=== PATIENT | male | born 1985 | race African-American/Black ===

== ENCOUNTER 2020-04-19 12:14 | Emergency (ER) | payer OTHER ==
[~2020-04-19] VITALS: Ht 182.9 cm; Wt 97.4 kg
[2020-04-19 12:15] VITALS: BP 155/96
[2020-04-19] MEDS ORDERED: NS 1,000 ML IV ONE ×2 (13:05→14:55)
[2020-04-19 13:30] LABS: BASO % 0.2 % (0.0-1.0); EOS % 0.3 % (0.0-3.0); HEMATOCRIT 51.7 % (42.0-52.0); HEMOGLOBIN 16.9 g/dl (13.5-17.5); LYMPH # 2.3 10^3/uL (1.5-5.0); LYMPH % 37.6 % (24.0-44.0); MEAN CORPUSCULAR HEMOGLOBIN 27.9 pg (27.0-33.0); MEAN CORPUSCULAR HGB CONC 32.7 g/dl (32.0-36.5); MEAN CORPUSCULAR VOLUME 85.5 fl (80.0-96.0); MONO # 0.5 10^3/uL (0.0-0.8); MONO % 7.6 % (2.0-8.0); NEUTROPHILS # 3.3 10^3/uL (1.5-8.5); NEUTROPHILS % 54.1 % (36.0-66.0); PLATELET COUNT, AUTOMATED 283 10^3/uL (150-450); RED BLOOD COUNT 6.05 10^6/uL (4.30-6.10); WHITE BLOOD COUNT 6.2 10^3/uL (4.0-10.0)
[2020-04-19 13:33] LABS: APPEARANCE, URINE CLEAR (CLEAR); BACTERIA, URINE AUTO NEGATIVE (NEGATIVE); BILIRUBIN, URINE AUTO NEGATIVE (NEGATIVE); BLOOD, URINE BLOOD NEGATIVE (NEGATIVE); COLOR, URINE STRAW (YELLOW); GLUCOSE, URINE (UA) AUTO NEGATIVE (NEGATIVE); KETONE, URINE AUTO 1+ mg/dL (NEGATIVE); LEUKOCYTE ESTERASE, URINE AUTO NEGATIVE (NEGATIVE); NITRITE, URINE AUTO NEGATIVE (NEGATIVE); PROTEIN, URINE AUTO NEGATIVE (NEGATIVE); RBC, URINE AUTO 2 /HPF (0-3); SPECIFIC GRAVITY URINE AUTO 1.003 (1.002-1.035); SQUAMOUS EPITHELIAL CELL UR AU 0 /HPF (0-6); UROBILINOGEN, URINE AUTO 0.2 mg/dL (0.0-2.0); WBC, URINE AUTO 0 /HPF (0-3)
[2020-04-19 14:29] LABS: ALBUMIN 5.2 GM/DL (3.2-5.2); ALT/SGPT 38 U/L (12-78); BILIRUBIN,DIRECT 0.2 MG/DL (0.0-0.2); BILIRUBIN,TOTAL 0.6 MG/DL (0.2-1.0); BLOOD UREA NITROGEN 23 MG/DL (7-18); CALCIUM LEVEL 10.2 MG/DL (8.5-10.1); CARBON DIOXIDE LEVEL 28 MEQ/L (21-32); CHLORIDE LEVEL 98 MEQ/L (98-107); CPK CREATINE PHOSPHOKINASE 1667 U/L (39-308); CREATININE FOR GFR 1.28 MG/DL (0.70-1.30); GLOMERULAR FILTRATION RATE > 60.0 (>60); GLUCOSE, FASTING 76 MG/DL (70-100); MAGNESIUM LEVEL 2.3 MG/DL (1.8-2.4); POTASSIUM SERUM 3.6 MEQ/L (3.5-5.1); SODIUM LEVEL 133 MEQ/L (136-145); TOTAL PROTEIN 9.2 GM/DL (6.4-8.2)
== END 2020-04-19 16:08 | disposition home or self-care (01) ==
LOC: M ED 12:14
DX: M62.82 Rhabdomyolysis (principal); R74.8 Abnormal levels of other serum enzymes; Z88.0 Allergy status to penicillin

== ENCOUNTER → 2020-04-20 | Outpatient (CLI) | payer OTHER ==
[2020-04-20 12:47] LABS: BLOOD UREA NITROGEN 13 MG/DL (7-18); CALCIUM LEVEL 9.5 MG/DL (8.5-10.1); CARBON DIOXIDE LEVEL 28 MEQ/L (21-32); CHLORIDE LEVEL 107 MEQ/L (98-107); CPK CREATINE PHOSPHOKINASE 1108 U/L (39-308); CREATININE FOR GFR 1.04 MG/DL (0.70-1.30); GLOMERULAR FILTRATION RATE > 60.0 (>60); GLUCOSE, FASTING 71 MG/DL (70-100); POTASSIUM SERUM 4.1 MEQ/L (3.5-5.1); SODIUM LEVEL 139 MEQ/L (136-145)
== END ==
LOC: M LAB 10:45
PROVIDERS: ATTEND Physician Assistant Medical
DX: M62.82 Rhabdomyolysis (principal)

== ENCOUNTER 2020-10-13 22:48 | Inpatient (IN) | payer OTHER ==
[~2020-10-13] VITALS: Ht 182.9 cm; Wt 104.6 kg
[2020-10-14 00:22] LABS: BASO % 0.2 % (0.0-1.0); EOS # 0.1 10^3/uL (0.0-0.5); EOS % 2.3 % (0.0-3.0); HEMATOCRIT 49.5 % (42.0-52.0); HEMOGLOBIN 16.7 g/dl (13.5-17.5); LYMPH # 2.1 10^3/uL (1.5-5.0); LYMPH % 41.2 % (24.0-44.0); MEAN CORPUSCULAR HGB CONC 33.7 g/dl (32.0-36.5); MEAN CORPUSCULAR VOLUME 85.9 fl (80.0-96.0); MONO # 0.4 10^3/uL (0.0-0.8); MONO % 8.3 % (2.0-8.0); NEUTROPHILS # 2.5 10^3/uL (1.5-8.5); NEUTROPHILS % 47.8 % (36.0-66.0); PLATELET COUNT, AUTOMATED 226 10^3/uL (150-450); RED BLOOD COUNT 5.76 10^6/uL (4.30-6.10); WHITE BLOOD COUNT 5.2 10^3/uL (4.0-10.0)
[2020-10-14] MEDS ORDERED: ACETAMINOPHEN 500 MG TAB PO ONE (00:25)
[2020-10-14] MEDS ORDERED: LIDOCAINE 4% CREAM 5GM (LMX4) TOP ONE (00:25)
[2020-10-14 01:02] LABS: BLOOD UREA NITROGEN 16 MG/DL (7-18); CARBON DIOXIDE LEVEL 30 MEQ/L (21-32); CHLORIDE LEVEL 106 MEQ/L (98-107); CPK CREATINE PHOSPHOKINASE 6480 U/L (39-308); CREATININE FOR GFR 1.37 MG/DL (0.70-1.30); GLOMERULAR FILTRATION RATE > 60.0 (>60); GLUCOSE, FASTING 76 MG/DL (70-100); POTASSIUM SERUM 4.5 MEQ/L (3.5-5.1); SODIUM LEVEL 139 MEQ/L (136-145)
[2020-10-14] MEDS ORDERED: NS 3,070 ML in IV 1 EA IV ONE (01:10)
[2020-10-14] MEDS ORDERED: med rec comment (01:21)
--- NOTE | 2020-10-14 01:23 | REPVR ---
PROCEDURE INFORMATION: Exam: XR Left Tibia and Fibula Exam date and time: 10/14/2020 12:10 AM Age: 35 years old Clinical indication: Pain; Lower leg; Left; Additional info: Pain, no norm TECHNIQUE: Imaging protocol: XR Left tibia and fibula. Views: 2 views. COMPARISON: No relevant prior studies available. FINDINGS: Bones/joints: Normal. Soft tissues: Normal. IMPRESSION: No acute findings. Electronically signed by: Michael Mota On 10/14/2020 01:22:35 AM
--- NOTE | 2020-10-14 01:23 | REPVR ---
PROCEDURE INFORMATION: Exam: XR Left Foot Exam date and time: 10/14/2020 12:27 AM Age: 35 years old Clinical indication: Pain; Foot; Left TECHNIQUE: Imaging protocol: XR Left foot. Views: 3 or more views. COMPARISON: No relevant prior studies available. FINDINGS: Bones/joints: Normal. Soft tissues: Normal. IMPRESSION: No acute findings. Electronically signed by: Michael Mota On 10/14/2020 01:23:23 AM
[2020-10-14] MEDS ORDERED: HOME MED LIST COMPLETE! XX SCH (01:25)
[2020-10-14] MEDS ORDERED: MOM 30ML SUSPENSION UDC PO PRN (01:50)
[2020-10-14] MEDS ORDERED: ACETAMINOPHEN TAB 650MG DOSE (2X325MG) PO PRN (01:50)
[2020-10-14] MEDS ORDERED: MAALOX 30 ML SUSP *UDC PO PRN (01:50)
[2020-10-14] MEDS: NS 1,000 ML IV SCH ×4 (01:50→12:42)
--- NOTE | 2020-10-14 01:51 | HPEPDOC ---
[facility] Medical History & Physical Date of Admission Oct 14, 2020 Date of Service: Oct 14, 2020 Attending Physician: MARINA FU MD History and Physical TIME OF SERVICE: 152am CHIEF COMPLAINT: leg pain HISTORY OF PRESENT ILLNESS: Unfortunately , a 35 yr old M, sustained an injury to his right knee and had to undergo surgery. About a week ago he started using a cane to help him walk and has been favoring his right side; around the same time he begun to work out and has been doing mostly upper body exercises. The day before yesterday, on his birthday, he didnt have much to eat or drink but was able to consume a few glasses of wine. Yesterday vomited and he had more than 6 episodes of diarrhea. This evening he came to the ER for evaluation of LLE cramping pain. The muscles in his arms are still sore. REVIEW OF SYSTEMS: 10-point review of systems negative except as listed in HPI PAST MEDICAL/ SURGICAL HISTORY: history of rhabdomyolysis, left knee surgery (after work place injury) SOCIAL HISTORY: He is in the , and his family moved to the area last fall. FAMILY HISTORY: n/a ALLERGIES: Please see below. HOME MEDICATIONS: Please see below. PHYSICAL EXAMINATION: Vital Signs Date Time Temp Pulse Resp B/P (MAP) Pulse Ox O2 Delivery O2 Flow Rate FiO2 10/13/20 22:50 97.9 95 14 125/86 (99) 98 GENERAL APPEARANCE: well-nourished and developed/ NAD HEENT: EOMI / MMM&P CARDIOVASCULAR: RRR/NMRG LUNGS: CTAB on RA ABDOMEN: contour convex MUSCULOSKELETAL: NCAT / FLORENCIA in all extremities except left knee (ROM limited by pain) INTEGUMENT: he is not flushed pale or diaphoretic NEUROLOGICAL: CN 2-12 grossly intact / speech not dysarthric PSYCHIATRIC: A&O x 3 / able to understand and follow all commands LABORATORY DATA: IMAGING: Left Tib/Fib xray IMPRESSION: No acute findings. Left Foot xray IMPRESSION: No acute findings. Vascular US IMPRESSION: No evidence of deep vein thrombosis. MICROBIOLOGY: Respiratory panel negative ASSESSMENT: Mr.Flavius skinner 35 yr old Andrew is admitted for management of Rhabdom yolysis and RICO. PLAN: 1 Rhabdomyolysis 2/2 exercise Belle Rhabdomyolysis Risk Score to predict the risk of severe RICO or mortality in patients with rhabdomyolysis is 0 points which is low risk. He has a 3% risk of or RICO requiring AWNING HANGER. Plan: admit to medical floor / IVF/ trend CPK 2 RICO Multifactorial (dehydration and rhabdo) Plan: IVF/ f/u UA and Ulytes, trend CK / f/u renal US 3 Gastroenteritis Plan: Zofran / IVF / contact precautions pending GI panel 4 Right knee pain Plan: Flector patch & acetaminophen 5 Class 1 obesity complicates care DVT px w Lovenox (Melchor Prediction Score to determine the in-patient risk of VTE & need for anticoagulation is 4. Individuals with a Melchor Score <4 are low risk of VTE and thromboprophylaxis should be considered on a mgiv-lq-mgbq basis while individuals with a Melchor score >4 are high risk for VTE and will likely benefit from thromboprophylaxis unless the patient has major contraindication such as major bleeding or thrombocytopenia). Dispo: home after at least 2 midnights stay / He is dealing with multiple life stressors a PFS consult has been placed Home Medications Miscellaneous Medications [med rec comment] pt states he is not currently taking any meds. has meds for his knee at home under bed but doesnt know what they are and hasnt been taking them. meds for depression are not going to start until thursday Allergies Coded Allergies: Penicillins (Verified Allergy, Unknown, HIVES, 04/19/20) A-FIB/CHADSVASC A-FIB History Current/History of A-Fib/PAF?: No Current PO Anticoag Therapy: No MARINA FU MD Oct 14, 2020 01:51
--- NOTE | 2020-10-14 02:51 | REPVR ---
PROCEDURE INFORMATION: Exam: US Duplex Lower Extremity Veins, Bilateral Exam date and time: 10/14/2020 2:28 AM Age: 35 years old Clinical indication: Pain; Leg, upper; Bilateral; Additional info: Thigh pain, bilat, elev ck, R/O dvt, poor mobility TECHNIQUE: Imaging protocol: Real-time duplex ultrasound of the extremities with 2-D lauren scale, color Doppler flow and spectral waveform analysis with image documentation. Complete exam focused on the bilateral lower extremity veins. COMPARISON: CR Foot, complete LEFT 10/14/2020 12:31 AM FINDINGS: Right deep veins: Unremarkable. The common femoral, femoral, proximal profunda femoral and popliteal veins are patent without thrombus. Normal Doppler waveforms. Normal compressibility and/or augmentation response. Right superficial veins: Saphenofemoral junction is patent without thrombus. Left deep veins: Unremarkable. The common femoral, femoral, proximal profunda femoral and popliteal veins are patent without thrombus. Normal Doppler waveforms. Normal compressibility and/or augmentation response. Left superficial veins: Saphenofemoral junction is patent without thrombus. Soft tissues: Unremarkable. IMPRESSION: No evidence of deep vein thrombosis. Electronically signed by: Michael Mota On 10/14/2020 02:50:30 AM
[2020-10-14 03:09] LABS: RSV AMPLIFICATION NEGATIVE (NEGATIVE)
[2020-10-14] MEDS ORDERED: ONDANSETRON 4 MG ORAL DISINTEGRATING TAB SL PRN (03:40)
[2020-10-14 04:04] LABS: PHOSPHORUS LEVEL 3.3 MG/DL (2.5-4.9)
[2020-10-14] MEDS ORDERED: DICLOFENAC EPOLAMINE 1.3 % PATCH TOP SCH (05:00)
[2020-10-14 05:10] VITALS: BP 135/84
[2020-10-14 06:00] VITALS: BP 135/84
[2020-10-14 07:21] LABS: HEMATOCRIT 41.5 % (42.0-52.0); MEAN CORPUSCULAR HEMOGLOBIN 28.9 pg (27.0-33.0); MEAN CORPUSCULAR HGB CONC 33.5 g/dl (32.0-36.5); MEAN CORPUSCULAR VOLUME 86.3 fl (80.0-96.0); PLATELET COUNT, AUTOMATED 194 10^3/uL (150-450); RED BLOOD COUNT 4.81 10^6/uL (4.30-6.10); WHITE BLOOD COUNT 4.2 10^3/uL (4.0-10.0)
[2020-10-14 07:22] LABS: HEMOGLOBIN 13.9 g/dl (13.5-17.5)
[2020-10-14 07:37] LABS: BLOOD UREA NITROGEN 14 MG/DL (7-18); CALCIUM LEVEL 7.7 MG/DL (8.5-10.1); CARBON DIOXIDE LEVEL 25 MEQ/L (21-32); CHLORIDE LEVEL 113 MEQ/L (98-107); CPK CREATINE PHOSPHOKINASE 4880 U/L (39-308); CREATININE FOR GFR 0.91 MG/DL (0.70-1.30); GLOMERULAR FILTRATION RATE > 60.0 (>60); GLUCOSE, FASTING 92 MG/DL (70-100); POTASSIUM SERUM 4.4 MEQ/L (3.5-5.1); SODIUM LEVEL 140 MEQ/L (136-145)
[2020-10-14] MEDS: ENOXAPARIN 40MG/0.4ML SYRINGE (J1650 PER 10MG) SC SCH ×2 (08:31→08:34)
[2020-10-14 09:46] LABS: APPEARANCE, URINE CLEAR (CLEAR); BACTERIA, URINE AUTO NEGATIVE (NEGATIVE); BILIRUBIN, URINE AUTO NEGATIVE (NEGATIVE); BLOOD, URINE BLOOD NEGATIVE (NEGATIVE); COLOR, URINE STRAW (YELLOW); GLUCOSE, URINE (UA) AUTO NEGATIVE (NEGATIVE); KETONE, URINE AUTO NEGATIVE (NEGATIVE); LEUKOCYTE ESTERASE, URINE AUTO NEGATIVE (NEGATIVE); NITRITE, URINE AUTO NEGATIVE (NEGATIVE); PROTEIN, URINE AUTO NEGATIVE (NEGATIVE); RBC, URINE AUTO 0 /HPF (0-3); SPECIFIC GRAVITY URINE AUTO 1.009 (1.002-1.035); SQUAMOUS EPITHELIAL CELL UR AU 0 /HPF (0-6); UROBILINOGEN, URINE AUTO 0.2 mg/dL (0.0-2.0); WBC, URINE AUTO 0 /HPF (0-3)
[2020-10-14 14:00] VITALS: BP 131/80
[2020-10-14 14:50] LABS: BLOOD UREA NITROGEN 12 MG/DL (7-18); CALCIUM LEVEL 7.7 MG/DL (8.5-10.1); CARBON DIOXIDE LEVEL 25 MEQ/L (21-32); CHLORIDE LEVEL 112 MEQ/L (98-107); CPK CREATINE PHOSPHOKINASE 4353 U/L (39-308); CREATININE FOR GFR 1.02 MG/DL (0.70-1.30); GLOMERULAR FILTRATION RATE > 60.0 (>60); GLUCOSE, FASTING 90 MG/DL (70-100); POTASSIUM SERUM 4.4 MEQ/L (3.5-5.1); SODIUM LEVEL 140 MEQ/L (136-145)
--- NOTE | 2020-10-14 15:56 | DS.PDOC ---
Discharge Summary General Date of Admission Oct 14, 2020 at 01:47 Date of Discharge 10/14/2020 Attending Physician: IRINEO ROSALES DO Discharge Summary PROCEDURES PERFORMED DURING STAY: None. ADMITTING DIAGNOSES: 1. Rhabdomyolysis. 2. Acute kidney injury 3. Gastroenteritis 4. Right knee pain 5. Class I obesity DISCHARGE DIAGNOSES: 1. Rhabdomyolysis, improved. 2. Acute kidney injury, resolved 3. Right knee pain 4. Class I obesity 5. Diarrhea, resolved COMPLICATIONS/CHIEF COMPLAINT: Acute Kidney Injury, Rhabdomyolysis. HISTORY OF PRESENT ILLNESS: Patient is a 35-year-old male who sustained an injury to his right knee and had to undergo surgery. About a week ago he started using cane to help her walk and began favoring his right side. Around the same time he began working with physical therapy and doing upper extremity exercises. Patient states that he was quite sore after doing the exercises late last week. Patient worked a 24-hour shift and then came home and had a few glasses of wine. Patient states that he did not have much to eat or drink throughout the day Thursday and Thursday and then began having lower extremity cramping and came into the emergency department. Patient also had episodes of diarrhea prior to coming into the hospital. Patient was found to have an acute kidney injury with a creatinine of 1.37. Patient's baseline appears to be around 1 from previous labs done. Patient was admitted for acute kidney injury most likely secondary to dehydration possibly secondary to rhabdomyolysis. HOSPITAL COURSE: Patient's acute kidney injury resolved on morning laboratory studies. Patient's creatinine kinase is also come down as expected. Patient was asking to go home and was stating he was feeling much better. Patient had repeat labs at 2 in the afternoon which showed that his kidney function was still normal and that his creatinine kinase was still continuing to come down. At this time, the patient states he did not have nearly as much soreness as he had when he came in. The soreness in his upper extremities had improved greatly. Patient was doing well. Patient was instructed to rest and not do any heavy lifting for the next few days until he sees his primary care provider on 10/17/2020. Patient will also have repeat laboratory studies in the morning. Patient was deemed ready for discharge on 10/14/2020. DISCHARGE MEDICATIONS: Please see below. ALLERGIES: Please see below. PHYSICAL EXAMINATION ON DISCHARGE: VITAL SIGNS: Please see below. General: Alert and oriented male patient who was sitting in bed when I walked in the room. Patient not appear to be in any acute distress. HEENT: Normocephalic, atraumatic, moist mucous membranes. Neck: No lymphadenopathy or thyromegaly Cardiac: Regular rate and rhythm, no murmurs, normal S1, normal S2 Pulm: Clear to auscultation bilaterally. No wheezes, rhonchi, rales Abd: Nondistended, nontender to palpation, normal bowel sounds Ext: No edema bilateral lower extremities LABORATORY DATA: Please see below. IMAGING: Left tip/fib x-ray performed on 10/13/2020 is reported to show no acute findings. Left foot x-ray performed on 10/13/2020 is reported to show no acute findings. Vascular ultrasound of the bilateral venous system of the lower extremity performed on 10/14/2020 was reported to show no evidence of DVT. PROGNOSIS: Good ACTIVITY: As tolerated. DIET: Regular DISCHARGE PLAN: Discharge home DISPOSITION: . DISCHARGE INSTRUCTIONS: 1. Follow-up with your primary care provider as scheduled on 10/17/2020. 2. Continue to drink lots of water to maintain hydration. 3. Have laboratory studies performed tomorrow. 4. Avoid heavy lifting and strenuous activity for the next few days. Off work note given to patient to be off until see his primary care provider 5. Return the emergency department if your symptoms worsen. ITEMS TO FOLLOWUP ON ON OUTPATIENT: 1. Laboratory results from 10/15/2020 DISCHARGE CONDITION: Stable. TIME SPENT ON DISCHARGE: 25 minutes. Vital Signs/I&Os Vital Signs Date Time Temp Pulse Resp B/P (MAP) Pulse Ox O2 Delivery O2 Flow Rate FiO2 10/14/20 14:00 98.7 79 18 131/80 (97) 96 Room Air I&O- Last 24 Hours up to 6 AM 10/14/20 06:00 Intake Total 250 ml Balance 250 ml Laboratory Data Labs 24H Laboratory Tests 2 10/14/20 00:12: Immature Granulocyte % (Auto) 0.2, Neutrophils (%) (Auto) 47.8, Lymphocytes (%) (Auto) 41.2, Monocytes (%) (Auto) 8.3H, Eosinophils (%) (Auto) 2.3, Basophils (%) (Auto) 0.2, Neutrophils # (Auto) 2.5, Lymphocytes # (Auto) 2.1, Monocytes # (Auto) 0.4, Eosinophils # (Auto) 0.1, Basophils # (Auto) 0.0, Nucleated Red Blood Cells % (auto) 0.0, Anion Gap 3L, Glomerular Filtration Rate > 60.0, Calcium Level 9.0, Phosphorus Level 3.3, Total Creatine Kinase 6480H 10/14/20 02:04: Coronavirus (COVID-19)(PCR) NEGATIVE, Influenza Type A (RT-PCR) NEGATIVE, Influenza Type B (RT-PCR) NEGATIVE, Respiratory Syncytial Virus (PCR) NEGATIVE 10/14/20 06:32: Nucleated Red Blood Cells % (auto) 0.0, Anion Gap 2L, Glomerular Filtration Rate > 60.0, Calcium Level 7.7L, Total Creatine Kinase 4880H 10/14/20 09:33: Urine Color STRAW, Urine Appearance CLEAR, Urine pH 7.0, Urine Specific Buckner 1.009, Urine Protein NEGATIVE, Urine Glucose (Auto)(UA) NEGATIVE, Urine Ketones (Auto) NEGATIVE, Urine Blood NEGATIVE, Urine Nitrite NEGATIVE, Urine Bilirubin NEGATIVE, Urine Urobilinogen 0.2, Urine Leukocyte Esterase (Auto) NEGATIVE, Urine WBC (Auto) 0, Urine RBC (Auto) 0, Urine Hyaline Casts (Auto) 0, Urine Bacteria (Auto) NEGATIVE, Urine Squamous Epithelial Cells 0, Urine Sperm (Auto) 10/14/20 13:41: Anion Gap 3L, Glomerular Filtration Rate > 60.0, Calcium Level 7.7L, Total C reatine Kinase 4353H CBC/BMP Laboratory Tests 10/14/20 00:12 10/14/20 06:32 10/14/20 13:41 Microbiology Microbiology 10/14/20 Gastrointestinal Tract Panel (PCR) - Final, Complete Discharge Medications Miscellaneous Medications [med rec comment] , (Reported) pt states he is not currently taking any meds. has meds for his knee at home under bed but doesnt know what they are and hasnt been taking them. meds for depression are not going to start until thursday Allergies Coded Allergies: Penicillins (Verified Allergy, Unknown, HIVES, 04/19/20) IRINEO ROSALES DO Oct 14, 2020 15:56
== END 2020-10-14 17:00 | disposition home or self-care (01) | DRG 558 ==
LOC: M ED 22:48 → M ED INP 10-14 01:47 → M MSPAV 10-14 05:10
PROVIDERS: ADMIT Internal Medicine; ATTEND Family Medicine
DX: M62.82 Rhabdomyolysis (principal); N17.9 Acute kidney failure, unspecified; E86.0 Dehydration; M25.561 Pain in right knee; E66.9 Obesity, unspecified; Z88.0 Allergy status to penicillin; K52.9 Noninfective gastroenteritis and colitis, unspecified; Z20.822 Contact with and (suspected) exposure to COVID-19; Z68.31 Body mass index [BMI] 31.0-31.9, adult

== ENCOUNTER → 2020-10-15 | Outpatient (CLI) | payer OTHER ==
[~2020-10-15] MED LIST: med rec comment
[2020-10-15 13:13] LABS: BLOOD UREA NITROGEN 8 MG/DL (7-18); CALCIUM LEVEL 8.7 MG/DL (8.5-10.1); CARBON DIOXIDE LEVEL 29 MEQ/L (21-32); CHLORIDE LEVEL 107 MEQ/L (98-107); CPK CREATINE PHOSPHOKINASE 3065 U/L (39-308); CREATININE FOR GFR 0.93 MG/DL (0.70-1.30); GLOMERULAR FILTRATION RATE > 60.0 (>60); GLUCOSE, FASTING 86 MG/DL (70-100); POTASSIUM SERUM 4.2 MEQ/L (3.5-5.1); SODIUM LEVEL 138 MEQ/L (136-145)
== END ==
LOC: M LAB 11:42
PROVIDERS: ATTEND Family Medicine
DX: Z09 Encounter for follow-up examination after completed treatment for conditions other than malignant neoplasm (principal)

== ENCOUNTER → 2020-12-18 | Outpatient (CLI) | payer OTHER ==
--- NOTE | 2020-12-19 17:08 | SLEEPCENT ---
DATE: 12/18/2020 ORDERED BY: Chase Worthy Nocturnal polysomnography was performed for evaluation of sleep physiology in this patient with a history of excessive somnolence and nonrestorative sleep. There was 7 hours and 2 minutes of data reviewed. There was 287 minutes of sleep identified. Sleep latency was prolonged at 116 minutes. REM latency was normal at 65 minutes. Sleep architecture once established was reasonably good, and there were three REM cycles noted. Overall sleep efficiency 68.9%. The electrocardiogram showed a sinus rhythm with an average heart rate of 65 beats per minute. Rate ranged 55-90. EEG showed fairly normal waveforms for wake and sleep. No focal events were identified. There were 45 respiratory events identified of 10 seconds in duration or greater for an apnea-hypopnea index of 9.4. The events were obstructive, not exclusive to sleep stage nor position. Arousals from respiratory events occurred 1.9 times per hour, and oxygen desaturations were seen into t he 80s. There was some limb activity in the EMG leads. Limb movement arousal index was 3.8. IMPRESSION: Obstructive sleep apnea syndrome (G47.33). Apnea-hypopnea index 9.4. RECOMMENDATION: The patient should be encouraged to return to the sleep disorder center for pressure therapy. In the interim, alcohol and sedative avoidance should be practiced and caution exercised during the operation of motor vehicles.
== END ==
LOC: M SLEEP 20:00
PROVIDERS: ATTEND Physician Assistant
DX: G47.33 Obstructive sleep apnea (adult) (pediatric) (principal)

== ENCOUNTER 2021-01-02 02:17 | Emergency (ER) | payer OTHER ==
[~2021-01-02] VITALS: Ht 182.9 cm; Wt 104.5 kg
[2021-01-02 02:18] VITALS: BP 171/74
--- OUTSIDE RECORDS SUMMARY | 2021-01-02 02:30 | CCD | Continuity of Care Document ---
Author Author Prince Zohra WORTHY P.A. Organization Unknown Address [address] [place] [address] Phone [phone] Care Team Providers Care City Clerk Name Role Phone Stella Sun [phone] Problems Description No Information Available Social History Type Date Description Comments Sex Unknown Tobacco Use Start: Unknown Non Smoker Smoking Status Reviewed: 11/28/20 Non Smoker Allergies and adverse reactions Active Allergies Criticality Reaction | Severity Comments Date Penicillins Unable to assess criticality 11/28/2020 Medications Active Medications SIG Qnty Indications Ordering Provide r Date Hydroxyzine HCL 25mg Tablets as needed Unknown Escitalopram Oxalate 5mg Tablets 2 by mouth every day Unknown Immunizations Description No Information Available Vital Signs Date Vital Result Comment 11/28/2020 1:03pm BP Systolic 120 mmHg BP Diastolic 70 mmHg Heart Rate 88 /min O2 % BldC Oximetry 97 % Height 72.5 inches 6'0.50" Weight 224.25 lb BMI (Body Mass Index) 30.0 kg/m2 [place] Body Weight 178 lb Neck Circumference in inches 19 [place] Score 16 Weight 101.720 kg BSA (Body Surface Area) 2.25 m2 Results Description No Information Available Procedures Description No Information Available Medical Devices Description No Information Available Encounters Description No Information Available Assessments Date Code Description Provider 11/28/2020 R40.0 Somnolence Chase Worthy PAnnemarie Garcia 11/28/2020 R06.83 Snoring Chase Worthy PAnnemarie Garcia 11/28/2020 G47.30 Sleep apnea, unspecified Randell Sarkar Plan of Treatment Future Appointment(s):* 01/22/2021 8:00 am - Chase Worthy PDipika at [facility] * 12/18/2020 7:45 pm - [facility] Sleep Lab at [facility] 11/28/2020 - Randell Sarkar* R40.0 Somnolence * R06.83 Snoring * G47.30 Sleep apnea, unspecified * * New Orders:* Sleep Nocturnal Diagnostic Sleep Study, Scheduled: 12/18/20 * Comments:* 1. The morbidity of untreated obstructive sleep apnea was reviewed and questions were answered.2. PSG and PAP therapy were reviewed and questions were answered.3. We will schedule for PSG.4. Sleep hygiene was reviewed. * Follow up:* 1. Follow up after testing. Functional Status Description No Information Available Mental Status Mental Condition Comment Date Status Cognitive ability not impaired A ctive Referrals Refer to Reason for Referral Status Appt Date Chase Worthy R.P.AAnnemarie-CAnnemarie ([phone] CONSULT DX: ? YUNI) [facility] eduled 11/28/2020 [facility]-Pulmonary [address] [place], [place] [id number] [phone] Chase Worthy R.P.A.-CAnnemarie ([phone] OFFICE VISIT DX: ?YUNI) Created [facility]-Pulmonary [address] [place], [place] [id number] [phone]
--- OUTSIDE RECORDS SUMMARY | 2021-01-02 02:30 | CCD | Continuity of Care Document ---
Author Author Prince Zohra WORTHY P.A. Organization Unknown Address [address] [place] [address] Phone [phone] Care Team Providers Care Business Operations Analyst Name Role Phone Stella Sun [phone] Problems Description No Information Available Social History [...] lb BMI (Body Mass Index) 30.0 kg/m2 [place] Body Weight 178 lb Neck Circumference in inches 19 [place] Score 16 Weight 101.720 kg BSA (Body Surface Area) 2.25 m2 Results Description No Information Available Procedures Date Code Description Status 11/28/2020 94996 Office/Outpatient New Low MDM 30 -44 Minutes Completed Medical Devices Description No Information Available Encounters Type Date Location Provider Dx Diagnosis Office Visit 11/28/2020 1:00p [facility] Chase Worthy, P.A. R40.0 Somnolence R06.83 Snoring G47.30 Sleep apnea, unspecified Assessments Date Code Description Provider 11/28/2020 R40.0 Somnolence Chase Worthy, P. AAnnemarie 11/28/2020 R06.83 Snoring Ronak Sarkar 11/28/2020 G47.30 Sleep apnea, unspecified Randell Sarkar Plan of Treatment Future Appointment(s):* 01/22/2021 8:00 am - Randell Sarkar at [facility] * 12/18/2020 7:45 pm - [facility] 11/28/2020 - Randell Sarkar* R40.0 Somnolence [...] for Referral Status Appt Date Chase Worthy R.P.A.-CAnnemarie ([phone] CONSULT DX: ? YUNI) [facility] eduled 11/28/2020 [facility]-Pulmonary [address] [place], [place] [id number] [phone] Chase Worhty R.P.A.-CAnnemarie ([phone] OFFICE VISIT DX: ?YUNI) Created [facility]-Pulmonary [address] [place], [place] [id number] [phone]
--- OUTSIDE RECORDS SUMMARY | 2021-01-02 02:30 | CCD | Continuity of Care Document ---
Author Author Prince Zohra WORTHY P.A. Organization Unknown Address [address] [place] [address] Phone [phone] Care Team Providers Care Signals Collection Technician Name Role Phone Stella Sun [phone] Problems Description No Information Available Social History [...] lb BMI (Body Mass Index) 30.0 kg/m2 [place] Body Weight 178 lb Neck Circumference in inches 19 [place] Score 16 Weight 101.720 kg BSA (Body [...] 8:00 am - Chase Worthy PDipika at [facility] Pulmonary/Thoracic * 12/18/2020 7:45 pm - [facility] Sleep Lab at [facility]Th[facility]acic 11/28/2020 - Randell Sarkar* R40.0 [...] Referral Status Appt Date Chase Worthy R.P.AAnnemarie-CAnnemarie ([phone] CONSULT DX: ? YUNI) [facility] eduled 11/28/2020 [facility]-Pulmonary [address] [place], [place] [id number] [phone] Chase Worthy R.P.A.-CAnnemarie ([phone] OFFICE VISIT DX: ?YUNI) Created [facility]-Pulmonary [address] [place], [place] [id number] [phone]
--- OUTSIDE RECORDS SUMMARY | 2021-01-02 02:30 | CCD ---
Author Author [facility] Organization [facility] Address Unknown Phone Unavailable Care Team Providers Care Ibm Bpm Architect Name Role Phone NO, PCP Unavailable Unavailable Maring, Kiran PA Unavailable Unavailable Maring, Kiran PA Unavailable Unavailable Maring, Kiran PA Unavailable Unavailable Maring, Kiran PA Unavailable Unavailable Maring, Kiran PA Unavailable Unavailable Maring, Kiran PA Unavailable Unavailable Maring, Kiran PA Unavailable Unavailable Maring, Kiran PA Unavailable Unavailable Maring, Kiran PA Unavailable Unavailable Maring, Kiran PA Unavailable Unavailable Maring, Kiran PA Unavailable Unavailable Maring, Kiran PA Unavailable Unavailable Maring, Kiran PA Unavailable Unavailable Maring, Kiran PA Unavailable Unavailable Maring, Kiran PA Unavailable Unavailable Maring, Kiran PA Unavailable Unavailable DHALIWAL, G EDWARD RPA Unavailable Unavailable DHALIWAL, G EDWARD RPA Unavailable Unavailable DHALIWAL, G EDWARD RPA Unavailable Unavailable DHALIWAL, G EDWARD RPA Unavailable Unavailable DHALIWAL, G EDWARD RPA Unavailable Unavailable DHALIWAL, G EDWARD RPA Unavailable Unavailable DHALIWAL, G EDWARD RPA Unavailable Unavailable DHALIWAL, G EDWARD RPA Unavailable Unavailable DHALIWAL, G EDWARD RPA Unavailable Unavailable DHALIWAL, G EDWARD RPA Unavailable Unavailable DHALIWAL, G EDWARD RPA Unavailable Unavailable DHALIWAL, G EDWARD RPA Unavailable Unavailable DHALIWAL, G EDWARD RPA Unavailable Unavailable DHALIWAL, G EDWARD RPA Unavailable Unavailable DHALIWAL, G EDWARD RPA Unavailable Unavailable DHALIWAL, G EDWARD RPA Unavailable Unavailable DHALIWAL, G EDWARD RPA Unavailable Unavailable DHALIWAL, G EDWARD RPA Unavailable Unavailable DHALIWAL, G EDWARD RPA Unavailable Unavailable DHALIWAL, G EDWARD RPA Unavailable Unavailable DHALIWAL, G EDWARD RPA Unavailable Unavailable DHALIWAL, G EDWARD RPA Unavailable Unavailable DHALIWAL, G EDWARD RPA Unavailable Unavailable DHALIWAL, G EDWARD RPA Unavailable Unavailable DHALIWAL, G EDWARD RPA Unavailable Unavailable DHALIWAL, G EDWARD RPA Unavailable Unavailable DHALIWAL, G EDWARD RPA Unavailable Unavailable DHALIWAL, G EDWARD RPA Unavailable Unavailable DHALIWAL, G EDWARD RPA Unavailable Unavailable DHALIWAL, G EDWARD RPA Unavailable Unavailable DHALIWAL, G EDWARD RPA Unavailable Unavailable DHALIWAL, G EDWARD RPA Unavailable Unavailable DHALIWAL, G EDWARD RPA Unavailable Unavailable DHALIWAL, G EDWARD RPA Unavailable Unavailable DHALIWAL, G EDWARD RPA Unavailable Unavailable DHALIWAL, G EDWARD RPA Unavailable Unavailable DHALIWAL, G EDWARD RPA Unavailable Unavailable RODAS, M JAMMIE PA Unavailable Unavailable RODAS, M JAMMIE PA Unavailable Unavailable RODAS, M JAMMIE PA Unavailable Unavailable RODAS, M JAMMIE PA Unavailable Unavailable RODAS, M JAMMIE PA Unavailable Unavailable RODAS, M JAMMIE PA Unavailable Unavailable RODAS, M JAMMIE PA Unavailable Unavailable RODAS, M JAMMIE PA Unavailable Unavailable RODAS, M JAMMIE PA Unavailable Unavailable RODAS, M JAMMIE PA Unavailable Unavailable RODAS, M JAMMIE PA Unavailable Unavailable RODAS, M JAMMIE PA Unavailable Unavailable RODAS, M JAMMIE PA Unavailable Unavailable RODAS, M JAMMIE PA Unavailable Unavailable RODAS, M JAMMIE PA Unavailable Unavailable RODAS, M JAMMIE PA Unavailable Unavailable RODAS, M JAMMIE PA Unavailable Unavailable RODAS, M JAMMIE PA Unavailable Unavailable RODAS, M JAMMIE PA Unavailable Unavailable RODAS, M JAMMIE PA Unavailable Unavailable RODAS, M JAMMIE PA Unavailable Unavailable RODAS, M JAMMIE PA Unavailable Unavailable RODAS, M JAMMIE PA Unavailable Unavailable RODAS, M JAMMIE PA Unavailable Unavailable RODAS, M JAMMIE PA Unavailable Unavailable RODAS, M JAMMIE PA Unavailable Unavailable RODAS, M JAMMIE PA Unavailable Unavailable RODAS, M JAMMIE PA Unavailable Unavailable RODAS, M JAMMIE PA Unavailable Unavailable RODAS, M JAMMIE PA Unavailable Unavailable RODAS, M JAMMIE PA Unavailable Unavailable RODAS, M JAMMIE PA Unavailable Unavailable RODAS, M JAMMIE PA Unavailable Unavailable RODAS, M JAMMIE PA Unavailable Unavailable RODAS, M JAMMIE PA Unavailable Unavailable Zohra Flynn MD Unavailable Unavailable Zohra Flynn MD Unavailable Unavailable Zohra Flynn MD Unavailable Unavailable Zohra Flynn MD Unavailable Unavailable Zohra Flynn MD Unavailable Unavailable Zohra Flynn MD Unavailable Unavailable Re-disclosure Warning The records that you are about to access may contain information from federally-assisted alcohol or drug abuse programs. If such information is present, then the following federally mandated warning applies: This information has been disclosed to you from records protected by federal confidentiality rules (42 CFR part 2). The federal rules prohibit you from making any further disclosure of this information unless further disclosure is expressly permitted by the written consent of the person to whom it pertains or as otherwise permitted by 42 CFR part 2. A general authorization for the release of medical or other information is NOT sufficient for this purpose. The Federal rules restrict any use of the information to criminally investigate or prosecute any alcohol or drug abuse patient.The records that you are about to access may contain highly sensitive health information, the redisclosure of which is protected by Article 27-F of the [facility] Public Health law. If you continue you may have access to information: Regarding HIV / AIDS; Provided by facilities licensed or operated by the [facility] Office of Mental Health; or Provided by the [facility] Office for People With Developmental Disabilities. If such information is present, then the following [facility] mandated warning applies: This information has been disclosed to you from confidential records which are protected by state law. State law prohibits you from making any further disclosure of this information without the specific written consent of the person to whom it pertains, or as otherwise permitted by law. Any unauthorized further disclosure in violation of state law may result in a fine or alf sentence or both. A general authorization for the release of medical or other information is NOT sufficient authorization for further disc losure. Allergies and Adverse Reactions Type Description Substance Reaction Status Data Source(s ) No Known Environmental Allergies No Known Environmental Al [facility] Food allergy PINEAPPLE; GRAPES PINEAPPLE; [facility] Propensity to adverse reactions PENICILLIN PENICILLIN RASH [facility] Encounters Encounter Providers Location Date Indications Data Source(s ) Outpatient Attender: JAMMIE Sanchez/Oxana/Gera/Ramona dl 11/28/2020 01:00:00 PM EDT [facility] ([facility] Outpatient Attender: HERIBERTO DHALIWAL RPA 07/06 05:26:19 PM EDT - 07/06/2020 06:16:14 PM EDT [facility] ([facility] ) Outpatient Attender: Dominic Flynn MDConsultant: PCP NO 06/25/2020 08:15:00 AM EDT - 06/25/2020 01:57:00 PM EDT [facility] Patient discharged. Outpatient Attender: Dominic Flynn MDConsultant: PCP NO 06/21/2020 08:35:09 AM EDT - 06/22/2020 08:42:00 AM EDT [facility] Patient discharged. Outpatient Attender: Kiran RIOS 04/08/19 05:31:55 PM EST - 04/08/2020 06:21:57 PM EST [facility] ([facility] ) Immunizations Vaccine Date Status Description Data Source(s) COVID-19 VACCINE Moderna 06/22/2020 12:00:00 AM EDT completed [facility] Vaccine Series Complete: YESThis Data wa s Submitted to [facility] Via [employer]. COVID-19 VACCINE Moderna 05/24/2020 12:00:00 AM EDT completed [facility] Vaccine Series Complete: NOThis Data was Submitted to [facility] Via [facility]. Medications No Information Insurance Providers Payer name Policy type / Coverage type Policy ID Covered republican ID Covered republican's relationship to cartagena Policy [employer] Plan Information / [id number] Self [id number] / [id number] Self 01 [id number] RPR- Needs Payer Match [id number] Self [id number] [place] [place] UNAVAILABLE S UNAVAILABLE EAST ACTIVE DUTY [id number] SP [id number] O UNAVAILABLE UNAVAILA BLE EAST [employer] - O/P [id number] 18 [id number] [employer] [place] O [id number] S [id number] Problems, Conditions, and Diagnoses Code Display Name Description Problem Type Effective Dates Data Source(s) 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 Name Value Range Interpretation Code Description Data Urmila rce(s) Supporting Document(s) SARS coronavirus 2 RNA [Presence] in Res piratory specimen by NATALIA with probe detection NEGATIVE [facility] This lab was ordered by [facility] a nd reported by [facility]. 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 He had exhausted non-operative treatmentand requested surgical evaluation with diagnostic arthroscopy with possible chondroplasty versusmicrofracture. The patient consulted on the risks of surgery to include, but not limited to infection,bleeding, damage to local structures, pain, stiffness, need for further surgery. He was able to signinformed consent, all questions were answered to his full satisfaction.PRE-OP DIAGNOSIS: Right knee patellar chondromalacia.POST-OP DIAGNOSIS: 1. Right knee patellar cho ndromalacia. 2. Chondromalacia in the medial femoral condyle and trochlea.MATERIAL FORWARDED: None.DESCRIPTION OF THE FINDINGS:Patient had grade I-III chondromalacia changes on the patella. He had a 1 x 2 grade II on thetrochlea, and an area of 4 x 8 mm of grade I-III on the medial femoral condyle. These were alltreated with chondroplasty. There was no penetration of these areas of degeneration to thesubchondral bone, so no need for microfracture.INFECTION CLASSIFICATION: I, clean.ESTIMATED BLOOD LOSS: 5 cc.OPERATION PERFORMED: 1. Right knee arthroscopy with chondroplasty. 2. Examination under anesthesia.DESCRIPTION OF OPERATION: [address] [place] [address] OPERATIVE SUMMARYNAME: ZHEN ATKINS DATE OF : 1985ATTENDING PHYS: Dominic Flynn MD DATE: 06/25/20 MR#: [id number] patient was met in the pre-op holding area, where correct name, identity, operative site,laterality, and procedure were verified to be correct without discrepancies. The operative site wasmarked by myself. The patient was then taken to the operating room by nursing and anesthesiaprovider, placed supine on the operating room table. All bony prominences were padded in thestandard fashion. SCD was placed on the non-operative leg, turned on and remained on throughoutthe case.Patient underwent general anesthetic and placement of advanced airway without complication.A right lower extremity thigh pneumatic tourniquet was placed. The patient was then prepped anddraped in the usual sterile fashion after having an examination under anesthesia, which was anormal examination. After being prepped and draped, a time-out was then called and patient'sname, operative site, laterality, and procedure were verified to be correct without discrepancies. Wealso confirmed antibiotic administration with weight-based clindamycin within one hour of incisionat this time as well.The patient had his bony landmarks marked, as was the incision for the arthroscopy, and then weexsanguinated the limb with an Esmarch. We inflated the tourniquet to 250 mmHg. Totaltourniquet time was 29 minutes. Patient then underwent diagnostic arthroscopy with standardanterolateral portal and anteromedial portal. Description of the findings as above. We evaluated thepatella pouch, the patellofemoral joint, medial and lateral condyles, medial and lateralcompartments, medial and lateral gutters, and the notch. Other than the chondromalacia, thereappeared to be no a bnormalities noted. Chondroplasty was performed as noted above. Once thiswas completed, the arthroscope was removed and the incisions were closed. The patient had localinfiltrate into the areas around the incision for pain control. He then had sterile dressings applied.He was then aroused from anesthesia, having tolerated the procedure well, and taken to the PACU.Post-operatively he will be weightbearing as tolerated, range of motion as tolerated, activities astolerated. We will follow up in 10-14 days for a wound check, and he will get started with physicaltherapy in the meantime. Patient received pre-op antibiotics. No post-op antibiotics are indicated.No post-op DVT chemoprophylaxis indicated for the case. [address] [place] [address] OPERATIVE SUMMARYNAME: ZHEN ATKINS DATE OF : 1985ATTENDING PHYS: Dominic Flynn MD DATE: 06/25/20 MR#: [id number]: Dominic Flynn MD 06/25/20 12:27DT: SSR 06/25/20 12:30DS: Dominic Flynn MD 06/25/20 13:29 3 Name Value Range Interpretation Code Description Data Urmila rce(s) Supporting Document(s) ID Date Data Source [id number] 06/20/2020 11:50:00 AM EDT [facility] Name Value Range Interpretation Code Description Data Urmila rce(s) Supporting Document(s) SARS coronavirus 2 RNA Not Detected [facility] [place] This lab was ordered by [facility] and reported by [facility]. ID Date Data Source [id number] 04/26/2020 09:51:00 AM EST [facility] Name Value Range Interpretation Code Description Data Urmila rce(s) Supporting Document(s) SARS coronavirus 2 RNA Not Detected [facility] [place] This lab was ordered by [facility] and reported by [facility]. ID Date Data Source [id number] 04/08/2020 12:00:00 AM EST [facility] Name Value Range Interpretation Code Description Data Urmila rce(s) Supporting Document(s) SARS coronavirus 2 RNA [Presence] in Res piratory specimen by NATALIA with probe detection NEGATIVE [facility] This lab was ordered by [facility] and reported by [facility]. ID Date Data Source [id number] 04/08/2020 12:00:00 AM EST [facility] Name Value Range Interpretation Code Description Data Urmila rce(s) Supporting Document(s) Carestart Rapid COVID Antigen Test Negative [facility] This lab was reported by [facility]. ID Date Data Source [id number] 03/19/2020 12:00:00 AM EST [facility] Sridevi Velez MD Patient Name: WILBERT FONTAINE[address] [facility] Date of : 1985[facility] ELEAZAR Mann [address]- Date of Exam: [facility]#: Fax: [phone] EXAM: CT UPPER RIGHT EXTREMITY WITHOUT CONTRASTCLINICAL INFORMATION: Injury on 02/28/2020. Assess scaphoid.Low dose 64 slice helical scanning through the right wrist was obtainedusing 1 mm increments and reconstructed in both cor onal and sagittalplanes. 3D reconstructions were also obtained. Post processing wasperformed at the physician's workstation.There is no wrist fracture. All cortical margins are smooth. There is noabnormal subluxation. There is no CT evidence of a gross soft tissueabnormality.There is an incidental finding of non-fusion of the hook of the hamate.There is no evidence of abnormal carpal tunnel narrowing between thatossific structure and the crest of the trapezium.IMPRESSION:No acute abnormality noted. Findings as described above.Accredited by the [employer] in [place].ARMAND Garcia/Maria Ines metcalf for referring PRINCE GAGE FONTAINE to our office. Electronically Signed - MARTI GERMAN DO 03/20/20 15:18 Name Value Range Interpretation Code Description Data Urmila rce(s) Supporting Document(s) Procedure Social History Code Duration Value Status Description Data Source(s ) Smoking 11/28/2020 12:00:00 AM EDT Non Smoker completed Non Smoke r [facility] ([facility]) Vital Signs ID Date Data Source UNK Name Value Range Interpretation Code Description Data Source(s) Systolic blood pressure 120 mm[Hg] 120 mm[Hg] [facility] Heart rate 88 /min 88 /min [facility] ([facility]) Body height 72.5 [in_i] 72.5 [in_i] [facility] ([facility]) 6'0.50" Diastolic blood pressure 70 mm[Hg] 70 mm[Hg] [facility] ([facility]) Body weight 224.25 [lb_av] 224.25 [lb_av] [facility] Body mass index (BMI) [Ratio] 30.0 kg/m2 30.0 k g/m2 [facility] ([facility]) [place] body weight 178 [lb_av] 178 [lb_av] [facility] Oxygen saturation in Arterial blood by Pulse oximetry 97 % 97 % [facility] ([facility]) Body weight 101.720 kg 101.720 kg [facility] ([facility]) Body surface area Derived from formula 2.25 m2 2.25 m2 [facility] ([facility]) ID Date Data Source [id number] 06/28/2020 02:09:48 PM EDT [facility] Name Value Range Interpretation Code Description Data Source(s) WEIGHT RECORDED 215.00 pounds 215.00 pounds [facility] Height 72 Inches 072 Inches [facility]
--- OUTSIDE RECORDS SUMMARY | 2021-01-02 02:30 | CCD | Continuity of Care Document ---
Author Author [facility] Organization Unknown Address [address] [place] [address] Phone [phone] Care Team Providers Care Turf Manager Name Role Phone Stella Sun [phone] Problems Description No Information Available Social History [...] lb BMI (Body Mass Index) 30.0 kg/m2 [place] Body Weight 178 lb Neck Circumference in inches 19 Counce Score 16 Weight 101.720 kg BSA (Body Surface Area) 2.25 m2 Results Description No Information Available Procedures Date Code Description Status 11/28/2020 [address]44[address] Office/Outpatient New Low MDM 30 -44 Minutes Completed Medical Devices Description No Information Available Encounters Type Date Location Provider Dx Diagnosis Office Visit 11/28/2020 1:00p [facility] Chase Worthy, P.A. R40.0 Somnolence R06.83 Snoring G47.30 Sleep apnea, unspecified Assessments Date Code Description Provider 11/28/2020 R40.0 Somnolence Chase Worthy, P. AAnnemarie 11/28/2020 R06.83 Snoring Ronak Sarkar 11/28/2020 G47.30 Sleep apnea, unspecified Randell Sarkar Plan of Treatment Future Appointment(s):* 01/22/2021 8:00 am - Randell Sarkar at [facility] * 12/18/2020 7:45 pm - [facility] 11/28/2020 - Randell Sarkar* R40.0 Somnolence [...] Referral Status Appt Date Chase Worthy R.P.A.-CAnnemarie ([phone] CONSULT DX: ? YUNI) [facility] eduled 11/28/2020 [facility] [address] [place], [place] [id number] [phone] Chase Worthy R.P.A.-CAnnemarie ([phone] OFFICE VISIT DX: ?YUNI) Created [facility] [address] [place], [place] [id number] [phone]
--- OUTSIDE RECORDS SUMMARY | 2021-01-02 02:30 | CCD | Continuity of Care Document ---
Author Author [facility] Organization Unknown Address [address] [place] [address] Phone [phone] Care Team Providers Care Older Adult Social Work Specialist Name Role Phone Stella Sun [phone] Problems Description No Information Available Social History [...] lb BMI (Body Mass Index) 30.0 kg/m2 [place] Body Weight 178 lb Neck Circumference in inches 19 [place] Score 16 Weight 101.720 kg BSA (Body [...] 8:00 am - Chase Worthy PDipika at [facility] * 12/18/2020 7:45 pm - [facility] Sleep [facility] at [facility] 11/28/2020 - Randell Sarkar* R40.0 [...] Referral Status Appt Date Chase Worthy R.P.AAnnemarie-CAnnemarie ([phone] CONSULT DX: ? YUNI) [facility] eduled 11/28/2020 [facility] [address] [place], [place] [id number] [phone] Chase Worthy R.P.A.-CAnnemarie ([phone] OFFICE VISIT DX: ?YUNI) Created [facility] [address] [place], [place] [id number] [phone]
--- OUTSIDE RECORDS SUMMARY | 2021-01-02 02:30 | CCD | Continuity of Care Document ---
Author Author [facility] Organization Unknown Address [address] [place] [address] Phone [phone] Care Team Providers Care Ship Ceiler Name Role Phone Stella Sun [phone] Problems Description No Information Available Social History [...] lb BMI (Body Mass Index) 30.0 kg/m2 [place] Body Weight 178 lb Neck Circumference in inches 19 [place] Score 16 Weight 101.720 kg BSA (Body [...] 8:00 am - Chase Worthy PDipika at [facility] * 12/18/2020 7:45 pm - [facility] at [facility] 11/28/2020 - Randell Sarkar* R40.0 [...] Referral Status Appt Date Chase Worthy R.P.AAnnemarie-CAnnemarie ([phone] CONSULT DX: ? YUNI) [facility] eduled 11/28/2020 [facility] [address] [place], [place] [id number] [phone] Chase Worthy R.P.A.-CAnnemarie ([phone] OFFICE VISIT DX: ?YUNI) Created [facility] [address] [place], [place] [id number] [phone]
--- OUTSIDE RECORDS SUMMARY | 2021-01-02 02:30 | CCD | Continuity of Care Document ---
Author Author Prince [facility] P[facility] Organization Unknown Address [address] [place] [address] Phone [phone] Care Team Providers Care Mixer Crane Operator Name Role Phone Stella Sun [phone] Problems Description No Information Available Social History [...] lb BMI (Body Mass Index) 30.0 kg/m2 [place] Body Weight 178 lb Neck Circumference in inches 19 [place] Score 16 Weight 101.720 kg BSA (Body [...] 8:00 am - Chase Worthy PDipika at [facility] * 12/18/2020 7:45 pm - [facility] at [facility] 11/28/2020 - Randell Sarkar* R40.0 [...] Referral Status Appt Date Chase Worthy R.P.AAnnemarie-CAnnemarie ([phone] CONSULT DX: ? YUNI) [facility] eduled 11/28/2020 [facility] [address] [place], [place] [id number] [phone] Chase Worthy R.P.A.-CAnnemarie ([phone] OFFICE VISIT DX: ?YUNI) Created [facility] [address] [place], [place] [id number] [phone]
--- OUTSIDE RECORDS SUMMARY | 2021-01-02 03:53 | CCD ---
Author Author [facility] Organization [facility] Address Unknown Phone Unavailable Care Team Providers Care Tree Feller Operator Name Role Phone NO, PCP Unavailable Unavailable [...] M JAMMIE PA Unavailable Unavailable RODAS, M JAMIME PA Unavailable Unavailable RODAS, M JAMMIE PA [...] is protected by Article 27-F of the [facility] Public Health law. If you continue you may have access to information: Regarding HIV / AIDS; Provided by facilities licensed or operated by the [facility] Office of Mental Health; or Provided by the [facility] Office for People With Developmental Disabilities. If such information is present, then the following [facility] mandated warning applies: This information has [...] law may result in a fine or half-way sentence or both. A general authorization for the release of medical or other information is NOT sufficient authorization for further disc losure. Allergies and Adverse Reactions Type Description Substance Reaction Status Data Source(s ) No Known Environmental Allergies No Known Environmental Al [facility] Food allergy PINEAPPLE; GRAPES PINEAPPLE; [facility] Propensity to adverse reactions PENICILLIN PENICILLIN RASH [facility] Encounters Encounter Providers Location Date Indications Data Source(s ) Outpatient Attender: JAMMIE Sanchez/Oxana/Gera/Ramona dl 11/28/2020 01:00:00 PM EDT [facility] ([facility] Outpatient Attender: HERIBERTO DHALIWAL RPA 07/06 05:26:19 PM EDT - 07/06/2020 06:16:14 PM EDT [facility] ([facility] ) Outpatient Attender: Dominic Flynn MDConsultant: PCP NO 06/25/2020 08:15:00 AM EDT - 06/25/2020 01:57:00 PM EDT [facility] Patient discharged. Outpatient Attender: Dominic Flynn MDConsultant: PCP NO 06/21/2020 08:35:09 AM EDT - 06/22/2020 08:42:00 AM EDT [facility] Patient discharged. Outpatient Attender: Kiran RIOS 04/08/19 05:31:55 PM EST - 04/08/2020 06:21:57 PM EST [facility] ([facility] ) Immunizations Vaccine Date Status Description Data Source(s) COVID-19 VACCINE Moderna 06/22/2020 12:00:00 AM EDT completed [facility] Vaccine Series Complete: YESThis Data wa s Submitted to [facility] Via [employer]. COVID-19 VACCINE Moderna 05/24/2020 12:00:00 AM EDT completed [facility] Vaccine Series Complete: NOThis Data was Submitted to [facility] Via [facility]. Medications No Information Insurance Providers Payer name Policy type / Coverage type Policy ID Covered republican ID Covered republican's relationship to [place] Policy [employer] Plan Information / [id number] Self [id number] / [id number] Self 01 [id number] RPR- Needs Payer Match [id number] Self [id number] [place] UNAVAILABLE S UNAVAILABLE EAST ACTIVE DUTY [id number] SP [id number] O UNAVAILABLE UNAVAILA BLE EAST [employer] - O/P [id number] 18 [id number] [employer] [place] O [id number] S [id number] Problems, Conditions, and Diagnoses Code Display Name Description Problem Type Effective Dates Data Source(s) 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, right knee Chondromalac ia patellae, right knee Diagnosis 06/25/2020 08:15:00 AM EDT [facility] [id number] Encounter for other preprocedural examin ation Encounter for other preprocedural examination Diagnosis 06/22/2020 08:10:00 AM EDT [facility] Surgeries/Procedures Procedure Description Date Indications Data Source(s) OFFICE OUTPATIENT NEW 30 MINUTES 11/28/2020 12:00:00 A M EDT [facility] ([facility] ) Results ID Date Data Source [id number] 10/14/2020 02:04:00 AM [facility] Name Value Range Interpretation Code Description Data Urmila rce(s) Supporting Document(s) SARS coronavirus 2 RNA [Presence] in Res piratory specimen by NATALIA with probe detection NEGATIVE [facility] This lab was ordered by [facility] a nd reported by [facility]. ID Date Data Source [id number] 06/25/2020 12:44:[place] [address] OPERATIVE SUMMARYNAME: ZHEN ATKINS DATE OF : 1985ATTENDING PHYS: Dominic Flynn MD DATE: 06/25/20 MR#: [id number] OF PROCEDURE: 06/25/2020URGEON: Dominic Flynn MD.VARNISHER: HARLEEN Edge.INDICATION FOR OPERATION:The patient is a [...] 2. Examination under anesthesia.DESCRIPTION OF OPERATION: [address] [place] [address] OPERATIVE SUMMARYNAME: ZHEN ATKINS DATE OF : 1985ATTENDING PHYS: Dominic Flynn MD DATE: 06/25/20 MR#: [id number] patient was met in the pre-op holding [...] DVT chemoprophylaxis indicated for the case. [address] [place] [address] OPERATIVE SUMMARYNAME: ZHEN ATKINS DATE OF : 1985ATTENDING PHYS: Dominic Flynn MD DATE: 06/25/20 MR#: [id number]: Dominic Flynn MD 06/25/20 12:27DT: SSR 06/25/20 12:30DS: Dominic Flynn MD 06/25/20 13:29 3 Name Value Range Interpretation Code Description Data Urmila rce(s) Supporting Document(s) ID Date Data Source [id number] 06/20/2020 11:50:00 AM EDT [facility] Name Value Range Interpretation Code Description Data Urmila rce(s) Supporting Document(s) SARS coronavirus 2 RNA Not Detected [facility] [place] This lab was ordered by [facility] and reported by [facility]. ID Date Data Source [id number] 04/26/2020 09:51:00 AM EST [facility] Name Value Range Interpretation Code Description Data Urmila rce(s) Supporting Document(s) SARS coronavirus 2 RNA Not Detected [facility] [place] This lab was ordered by [facility] and reported by [facility]. ID Date Data Source [id number] 04/08/2020 12:00:00 AM EST [facility] Name Value Range Interpretation Code Description Data Urmila rce(s) Supporting Document(s) SARS coronavirus 2 RNA [Presence] in Res piratory specimen by NATALIA with probe detection NEGATIVE [facility] This lab was ordered by [facility] and reported by [facility]. ID Date Data Source [id number] 04/08/2020 12:00:00 AM EST [facility] Name Value Range Interpretation Code Description Data Urmila rce(s) Supporting Document(s) Carestart Rapid COVID Antigen Test Negative [facility] This lab was reported by [facility]. ID Date Data Source [id number] 03/19/2020 12:00:00 AM EST [facility] Sridevi Velez MD Patient Name: WILBERT FONTAINE[address] [facility] Date of : 1985[facility] [place] [address]- Date of Exam: [facility]#: Fax: [phone] EXAM: CT UPPER RIGHT EXTREMITY [...] noted. Findings as described above.Accredited by the [employer] in [place].ARMAND Garcia/Maria Ines metcalf for referring PRINCE GAGE FONTAINE to our office. Electronically Signed - MARTI GERMAN DO 03/20/20 15:18 Name Value Range Interpretation Code Description Data Urmila rce(s) Supporting Document(s) Procedure Social History Code Duration Value Status Description Data Source(s ) Smoking 11/28/2020 12:00:00 AM EDT Non Smoker completed Non Smoke r [facility] ([facility]) Vital Signs ID Date Data Source UNK Name Value Range Interpretation Code Description Data Source(s) Systolic blood pressure 120 mm[Hg] 120 mm[Hg] [facility] Diastolic blood pressure 70 mm[Hg] 70 mm[Hg] [facility] ([facility]) Heart rate 88 /min 88 /min [facility] ([facility]) Body height 72.5 [in_i] 72.5 [in_i] [facility] ([facility]) 6'0.50" Body weight 224.25 [lb_av] 224.25 [lb_av] [facility] Body mass index (BMI) [Ratio] 30.0 kg/m2 30.0 k g/m2 [facility] ([facility]) [place] body weight 178 [lb_av] 178 [lb_av] [facility] Body weight 101.720 kg 101.720 kg [facility] ([facility]) Body surface area Derived from formula 2.25 m2 2.25 m2 [facility] ([facility]) Oxygen saturation in Arterial blood by Pulse oximetry 97 % 97 % [facility] ([facility]) ID Date Data Source [id number] 06/28/2020 02:09:48 PM EDT [facility] Name Value Range Interpretation Code Description Data Source(s) WEIGHT RECORDED 215.00 pounds 215.00 pounds [facility] Height 72 Inches 072 Inches [facility]
--- NOTE | 2021-01-02 20:30 | ECGEPIP ---
[facility] - ED Test Date: 2021-01-02 Pat Name: PRINCE FONTAINE Department: Room: - Gender: Male [employer]: KOBY : 1985 Requested By: Eduardo Garcia Order Number: [id number] Reading MD: Nicky Salmon Measurements Intervals [place] Rate: 62 P: 47 [place]: 148 QRS: 6 QRSD: 94 T: -1 QT: 386 QTc: 391 Interpretive Statements Normal sinus rhythm NSTTW abnormalities No prior Electronically Signed on 01-02-2021 20:30:44 EST by Nicky Salmon
== END 2021-01-02 03:55 | disposition left against medical advice (07) ==
LOC: M ED 02:17
DX: Z53.29 Procedure and treatment not carried out because of patient's decision for other reasons (principal)

== ENCOUNTER → 2021-02-06 | Outpatient (CLI) | payer OTHER ==
--- NOTE | 2021-02-07 14:47 | SLEEPCENT ---
DATE: 02/06/2021 ORDERED BY: Chase Worthy Nocturnal polysomnography was performed for the titration of pressure therapy in this patient with obstructive sleep apnea syndrome, apnea-hypopnea index 9.4. For testing, a ResMed AirFit F20 full-face mask of large size was used. There was 4 cm of water pressure applied to the circuit, and the lights were extinguished. There was 7 hours and 27 minutes of data reviewed. There was 302.5 minutes of sleep identified. Sleep latency was prolonged at 80.5 minutes. REM latency was short at 54 minutes. Sleep architecture was good with three REM cycles. Overall sleep efficiency 68.4%. The electrocardiogram showed a sinus rhythm with an average heart rate of 65 beats per minute. EEG showed fairly normal waveforms for wake and sleep. Respiratory events were fully palliated with CPAP at a pressure of 10. There was some scattered limb activity, and remaining measures of sleep physiology were normal. IMPRESSION: Obstructive sleep apnea syndrome (G47.33). RECOMMENDATION: Nightly use of pressure therapy, 10 cm of water.
== END ==
LOC: M SLEEP 20:00
PROVIDERS: ATTEND Physician Assistant
DX: G47.33 Obstructive sleep apnea (adult) (pediatric) (principal)

== ENCOUNTER → 2021-04-22 | Outpatient (REF) | LOC: M PLAIMG 09:07 | PROVIDERS: ATTEND Internal Medicine | DX: M79.671 Pain in right foot (principal); M79.672 Pain in left foot ==

== ENCOUNTER → 2021-06-28 | Outpatient (REF) | payer OTHER ==
[2021-06-28 22:34] LABS: GC DNA AMPLIFICATION NEGATIVE (NEGATIVE)
== END ==
LOC: M LAB REF 19:14
PROVIDERS: ATTEND Physician Assistant
DX: N50.812 Left testicular pain (principal)